=== PATIENT | female | born 1995 | race Two or more races ===

== ENCOUNTER → 2019-01-05 | Outpatient (CLI) | payer OTHER ==
--- NOTE | 2019-01-05 15:18 | RAD ---
Obstetrical ultrasound, 01/05/2019: HISTORY: Small for dates Transabdominal scans were obtained. There is a single intrauterine fetus demonstrating a crown-rump length of 5.7 cm. This suggests a gestational age of 12 weeks and 2 days yielding a sonographic EDC of 07/18/2019. Normal activity and heart motion were seen. The heart rate was 157 bpm. There is no evidence of subchorionic hemorrhage. The maternal ovaries are of normal size. No adnexal abnormality is seen. No free fluid is evident in the pelvis. IMPRESSION: Single viable intrauterine fetus of 12-13 weeks gestational age. Electronically signed by: Howard De Dios MD (01/05/2019 3:15 PM) [facility]
== END | disposition home or self-care (01) ==
LOC: US 11:04
PROVIDERS: ATTEND Family Medicine
DX: O36.5910 Maternal care for other known or suspected poor fetal growth, first trimester, not applicable or unspecified (principal); Z3A.12 12 weeks gestation of pregnancy
CPT/HCPCS: 76801

== ENCOUNTER → 2019-03-01 | Outpatient (CLI) | payer OTHER ==
--- NOTE | 2019-03-01 15:03 | RAD ---
EXAM: Obstetrics sonogram. HISTORY: Large for dates. TECHNIQUE: Sonographic imaging of a gravid uterus was performed. COMPARISON: 01/05/2019. FINDINGS: There is a single intrauterine fetus in breech presentation with a heart rate of 155 bpm. The cervix is closed and measures 4.7 cm in length. There is an anterior placenta without evidence of placenta previa. The amniotic fluid index is normal at 10.5 cm. The stomach, kidneys, bladder, spine, brain, facial profile, extremities and heart are unremarkable. There is a 2 vessel umbilical cord with normal insertion. The biparietal diameter is 4.62 cm, corresponding with 20 weeks and 0 days. The head circumference is 17.41 cm, corresponding with 20 weeks and 0 days. The abdominal circumference is 14.85 cm, corresponding with 20 weeks and 1 day. The femoral length is 3.2 cm, corresponding with 20 weeks and 0 days. The estimated gestational age patient combined ultrasound measurements is 20 weeks and 0 days and the due date is 07/19/2019. The estimated weight is 328 g. IMPRESSION: 1. Single intrauterine fetus with an estimated gestational age of 20 weeks and 0 days and heart rate of 155 bpm. 2. 2 vessel umbilical cord. The anatomy survey is otherwise unremarkable. Electronically signed by: Diana Steele MD (03/01/2019 3:00 PM) [place] [id number]
== END | disposition home or self-care (01) ==
LOC: US 14:00
PROVIDERS: ATTEND Family Medicine
DX: O32.1XX0 Maternal care for breech presentation, not applicable or unspecified (principal); O36.62X0 Maternal care for excessive fetal growth, second trimester, not applicable or unspecified; Z3A.20 20 weeks gestation of pregnancy
CPT/HCPCS: 76805

== ENCOUNTER → 2019-07-06 | Outpatient (CLI) | payer OTHER ==
--- NOTE | 2019-07-08 08:54 | KCIC ---
OB ultrasound dated 07/06/2019: Comparison made 03/01/2019. Clinical Indication: Large for dates. Findings: There is a single intrauterine gestation in cephalic presentation. The placenta is anterior in location without evidence of placental previa. The amount of amniotic fluid appears appropriate. REJI equals 11.3 cm. Biometrical data is as follows: BPD = 9.49 cm for 38 weeks 5 days. HC = 33.8 cm for 38 weeks 5 days. AC = 34.7 cmfor 38 weeks 4 days. FL = 7.3 cm for 37 weeks 3 days. Overall, the estimated sonographic gestational age is 38 weeks 3 days for an estimated date of delivery of 07/17/2019. Estimated weight is 3472 g. A 4 chamber heart is identified with positive cardiac activity. The estimated heart rate is 141 beats per minute. Positive movement. Cervix is not well visualized. A complete survey was not performed. Impression: Single viable intrauterine gestation with estimated sonographic gestational age of 30 weeks 3 days. There has been appropriate interval growth. Electronically signed by: Javy Garcia MD (07/08/2019 8:51 AM) [facility]
== END | disposition home or self-care (01) ==
LOC: KCIC US 11:46
PROVIDERS: ATTEND Family Medicine
DX: O26.893 Other specified pregnancy related conditions, third trimester (principal); Z3A.30 30 weeks gestation of pregnancy
CPT/HCPCS: 76815

== ENCOUNTER → 2020-11-12 | Outpatient (CLI) | payer OTHER ==
--- NOTE | 2020-11-12 13:38 | RAD ---
EXAM: OB ULTRASOUND, > 14 WEEKS HISTORY: Small for dates. COMPARISON: None. TECHNIQUE: Sonographic imaging of the pelvis performed. FINDINGS: The uterus is normal in size and the cervix is normal in length. There is a single intraute rine gestational sac and pole. The crown-rump length is 4.83 cm, corresponding with a ges tational age of 11 weeks and 5 days. There is normal heart rate of 147 bpm. The ovaries are nor mal in size and demonstrate normal blood flow. There is no pelvic free fluid. The amniotic fluid bone s is grossly normal. The placenta is normal in appearance. IMPRESSION: Single intrauterine fetus with normal heart rate and gestational age based on a crown-rum p length measurement of 11 weeks and 5 days. The estimated due date is 05/29/2021. Electronically signed by: Diana Steele MD (11/12/2020 1:36 PM) [id number]
== END ==
LOC: US 12:13
PROVIDERS: ATTEND Family Medicine
DX: Z34.91 Encounter for supervision of normal pregnancy, unspecified, first trimester (principal); Z3A.11 11 weeks gestation of pregnancy
CPT/HCPCS: 76801

== ENCOUNTER → 2021-01-07 | Outpatient (CLI) | payer OTHER ==
--- NOTE | 2021-01-08 13:47 | RAD ---
OB ULTRASOUND, > 14 WEEKS Clinical Indication: Reason: Large for Dates / Comparison: Obstetric ultrasound November 12, 2020. Technique: Multiple grayscale images, color Doppler, and M-mode images of the uterus are obtained. Findings: There is a single intrauterine gestation in breech presentation. The placenta is posterior in locatio n without evidence of placenta previa. The amount of amniotic fluid appears appropriate. Amniotic fl uid index is 11.4 cm. Cervical length is 4.1 cm. The cervix is closed. Biometrical data: BPD = 4.4 cm for 19 weeks 3 days. HC = 16.9 cm for 19 weeks 4 days. AC = 14.3 cm for 19 weeks 4 days. FL = 3.4 cm for 20 weeks 4 days. HC/AC ratio = 1.18. Overall, the estimated sonographic gestational age is 19 weeks and 6 days for an estimated date of of May 28, 2021. The estimated date of delivery provided by the last menstrual period is 08/02/2020. The estimated date of delivery on prior ultrasound was 05/29/2021. Estimated weight is 324 +/- 48 grams. A 4 chamber heart is partially visualized with positive cardiac activity. The estimated heart r ate is 153 beats per minute. Bilateral upper and lower extremities are identified. There is a three-vessel cord with cord insertion visualized. stomach and urinary bladder are identified. Both kidneys are seen. The spine and brain are unremarkable. No obvious anatomic abnormalities are identified. The maternal ovaries are not identified in the adnexa due to overlying bowel gas. Impression: Single live intrauterine gestation with estimated sonographic gestational age of 19 weeks and 6 days. Electronically signed by: Magen Farmer MD (01/08/2021 1:45 PM) [id number]
== END ==
LOC: US 13:56
PROVIDERS: ATTEND Family Medicine
DX: O26.842 Uterine size-date discrepancy, second trimester (principal); Z3A.19 19 weeks gestation of pregnancy
CPT/HCPCS: 76805